=== PATIENT | male | born 1980 | race African-American/Black ===

== ENCOUNTER 2021-11-23 10:06 | Outpatient (CLI) | payer SELFPAY ==
--- NOTE | 2021-11-23 15:22 | DI.RAD_ITS ---
Exam(s) XR FOOT LT COMPLETE EXAM: XR FOOT LT COMPLETE CLINICAL HISTORY: r/o fracture, Left foot pain - M79.672. TECHNIQUE: 2D digital imaging was performed. Three views. COMPARISON: CR XR ANKLE LT COMPLETE from 11/23/2021 FINDINGS: BONES: There is a question of a tiny fracture fragment from the lateral aspect of the cuboid.. No saige ny destructive lesion is seen. There is mild 1st metatarsal varus and mild hallux valgus. There is m inimal 1st MTP joint space narrowing JOINTS: No dislocation present. SOFT TISSUE: Normal. IMPRESSION: Question of a tiny fracture fragment at the lateral aspect of the cuboid DATA REPOSITORY: RADIATION DOSE DELIVERED:
--- NOTE | 2021-11-23 15:22 | DI.RAD_ITS ---
Exam(s) XR ANKLE LT COMPLETE EXAM: XR ANKLE LT COMPLETE CLINICAL HISTORY: r/o fracture, Left ankle pain - M25.572 TECHNIQUE: 2D digital imaging was performed. Three views. COMPARISON: No exams were available for comparison FINDINGS: BONES: No acute fracture is present. No bony destructive lesion is seen. Small heel spur. JOINTS:The ankle mortise is normally aligned. SOFT TISSUE: Normal. IMPRESSION: Unremarkable radiographs of the left ankle. DATA REPOSITORY: RADIATION DOSE DELIVERED:
== END 2021-11-23 10:26 ==
PROVIDERS: Visit Provider Nurse Practitioner Family
DX: M25.572 Pain in left ankle and joints of left foot (principal); M79.672 Pain in left foot; M20.12 Hallux valgus (acquired), left foot; M84.872 Other disorders of continuity of bone, left ankle and foot; M77.32 Calcaneal spur, left foot
CPT/HCPCS: 73610; 73630

== ENCOUNTER 2022-12-06 17:43 | Outpatient (CLI) | payer OTHER, SELFPAY ==
--- NOTE | 2022-12-06 17:45 | DI.RAD_ITS ---
Exam(s) XR THUMB RT EXAM: XR THUMB RT CLINICAL HISTORY: crush right thumb injury. TECHNIQUE: 2D digital imaging was performed of the right finger. Three views were obtained. PA/AP, oblique, and lateral views were obtained. COMPARISON: No exams were available for comparison FINDINGS: BONES: No acute fracture is present. No bony destructive lesion is seen. JOINTS: No dislocation present. SOFT TISSUE: Normal. IMPRESSION: No evidence of acute fracture, dislocation, or subluxation. DATA REPOSITORY: RADIATION DOSE DELIVERED:
--- NOTE | 2022-12-06 18:19 | DI.VRAD_ITS ---
PROCEDURE INFORMATION: Exam: XR Right Finger(s) Exam date and time: 12/06/2022 6:01 PM Age: 42 years old Clinical indication: Injury or trauma; Other: Crushed right thumb injury; Crushing; Finger TECHNIQUE: Imaging protocol: Radiologic exam of the right fingers. Views: Minimum 2 views. COMPARISON: No relevant prior studies available. FINDINGS: Bones/joints: Normal trabecular architecture is seen throughout with no acute fractures detected. Soft tissues: Unremarkable. IMPRESSION: No acute findings. Dictated and Authenticated by: Waqas Escamilla MD. Ordering:YAKELIN Purcell MD
== END 2022-12-06 18:03 ==
PROVIDERS: Visit Provider Physician Assistant Medical
DX: S69.91XA Unspecified injury of right wrist, hand and finger(s), initial encounter (principal)
CPT/HCPCS: 73140

== ENCOUNTER 2024-09-09 08:29 | Emergency (ER) | payer SELFPAY ==
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
[2024-09-09 08:49] VITALS: BP 180/104; PULSE 63; RESP 18; TEMP 36.7; O2SAT 96
[2024-09-09] MEDS: Ibuprofen 600 MG TAB PO (09:45)
[2024-09-09] MEDS: Lidocaine 5% Patch 1 PATCH TP (09:45)
[2024-09-09 09:49] VITALS: BP 180/104; PULSE 63; RESP 18; TEMP 36.7; O2SAT 96
== END 2024-09-09 09:53 | disposition home or self-care (01) ==
LOC: ER 10:22
PROVIDERS: Emergency Provider Nurse Practitioner Family
DX: M54.9 Dorsalgia, unspecified (principal); R03.0 Elevated blood-pressure reading, without diagnosis of hypertension; W19.XXXA Unspecified fall, initial encounter
CPT/HCPCS: 99283